=== PATIENT | male | born 2000 | race Caucasian/White ===

== ENCOUNTER 2020-01-08 20:28 | Emergency (ER) | payer BC ==
[2020-01-08] MEDS ORDERED: Albuterol/Ipratropium 3.0-0.5 MG/3 ML Neb Soln NEB ONE (21:52)
--- NOTE | 2020-01-08 21:59 | EDM.PDOC ---
ED HPI GENERAL MEDICAL PROBLEM - General Chief Complaint: Respiratory Problem Stated Complaint: FEVER, VOMITING, COUGH Time Seen by Provider: 01/08/20 20:36 Source of Information: Reports: Patient History Limitations: Reports: No Limitations - History of Present Illness INITIAL COMMENTS - FREE TEXT/NARRATIVE: HISTORY OF PRESENT ILLNESS: Patient is a 19-year-old male who complains of 3 to 4-day history of cough, occasional wheezing and mild shortness of breath. Has generalized malaise and myalgias. Has had tactile fever at home. Reports episode of posttussive emesis, no other vomiting, but does have nausea. Denies any chest pain. No rash or neck stiffness. No urinary symptoms. Denies any recent international travel. No known contact with anyone with confirmed COVID 19. Patient is a smoker REVIEW OF SYSTEMS: Other than the symptoms associated with the present events, the following is reported with regard to recent health: General: (+) fever. HENT: (-) congestion. Respiratory: (+) cough. Cardiovascular: (-) chest pain. GI: (-) abdominal pain. : (-) urinary complaints. Musculoskeletal: (+)generalized myalgias. Endocrine: (+) generalized weakness. Neurological: (-) localized weakness. Skin: (-) rash PAST MEDICAL HISTORY: reviewed as per nursing notes SOCIAL HISTORY: reviewed as per nursing notes, MEDICATIONS: Per nurse's note ALLERGIES: Per nurse's note, reviewed by me PHYSICAL EXAMINATION: GENERALIZED APPEARANCE: well developed, well nourished in mild distress VITAL SIGNS: Per nurse's note, reviewed by me SKIN: Warm, dry; (-) cyanosis; (-) rash. HEAD: (-) scalp swelling, (-) tenderness. EYES: (-) conjunctival pallor, (-) scleral icterus. ENMT: (-) stridor; mucous membranes moist. NECK: (-) tenderness, (-) stiffness, CHEST AND RESPIRATORY: (-) rales, (-) rhonchi, (+)transient expiratory wheezes ; breath sounds equal bilaterally. HEART AND CARDIOVASCULAR: (-) irregularity; (-) murmur, (-) gallop. ABDOMEN AND GI: Soft; (-) tenderness, (-) guarding, (-) rebound, (-) palpable masses, EXTREMITIES: (-) deformity, (-) edema. NEURO AND PSYCH: Alert. Cranial nerves grossly intact; strength symmetric. gait steady DIAGNOSTICS: influenza negative Strep (ordered by another provider) negative COVID-19: pending CXR: as read by radiologist, reviewed by myself. EMERGENCY DEPARTMENT COURSE AND TREATMENT: Patient's condition remained stable during Emergency Department evaluation. Based on my history, physical exam, and diagnostic evaluation, the patient appears to have symptoms consistent with viral illness/bronchitis. There is a normal heart rate, normal oxygen saturation , a normal respiratory pattern and non-diagnostic exam. The patient appeared to be in no distress, appeared well-hydrated and was ambulating in the ED without difficulty. Discharge precautions were given with instructions to return if difficulty breathing, not tolerating oral food or fluids, any respiratory distress, or new symptoms. I encouraged follow-up with the primary care physician in 1-2 days for repeat exam. PLAN AND FOLLOW-UP: Patient received written and verbal instructions regarding this condition. Return to ED immediately with any new or worsening symptoms. Follow up to be arranged by patient with pcp in 1-2 days for further evaluation. Given discharge precautions. Patient expressed verbal understanding. Generalized Pain Score (Numeric/FACES): 8 - Related Data Allergies Allergy/AdvReac Type Severity Reaction Status Date / Time No Known Allergies Allergy Verified 01/08/20 21:22 Home Meds: Home Meds . [No Known Home Meds] 01/08/20 [History] ED ROS GENERAL - Review of Systems Review Of Systems: See Below (see dictation) ED EXAM, GENERAL - Physical Exam Exam: See Below (see dictation) Course - Vital Signs Last Recorded V/S: Last Vital Signs Temp 99.2 F 01/08/20 21:19 Pulse 95 01/08/20 21:19 Resp 18 01/08/20 21:19 BP 115/58 L 01/08/20 21:19 Pulse Ox 97 01/08/20 21:19 - Orders/Labs/Meds Orders: Active Orders 24 hr Category Date Time Status RT Aerosol Therapy [RC] ASDIRECTED Care 01/08/20 21:52 Active CORONAVIRUS (COVID-19) PCR [MREF] Stat Lab 01/08/20 22:00 Received CULTURE STREP A CONFIRMATION [] Stat Lab 01/08/20 21:15 Results STREP SCRN A RAPID W CULT CONF [] Stat Lab 01/08/20 21:15 Results Isolation [COMM] Routine Oth 01/08/20 20:37 Active Isolation [COMM] Routine Oth 01/08/20 21:52 Active Meds: Medications Discontinued Medications Generic Name Dose Route Start Last Admin Trade Name Heidi PRN Reason Stop Dose Admin Albuterol/Ipratropium 3 ml 01/08/20 21:52 01/08/20 22:02 Duoneb 3.0-0.5 Mg/3 Ml NEB 01/08/20 21:53 3 ml ONETIME ONE Administration Departure - Departure Time of Disposition: 23:30 Disposition: Home, Self-Care 01 Condition: Good Clinical Impression: Bronchitis - Discharge Information *PRESCRIPTION DRUG MONITORING PROGRAM REVIEWED*: Not Applicable *COPY OF PRESCRIPTION DRUG MONITORING REPORT IN PATIENT NIVIA: Not Applicable Instructions: Viral Illness, Adult, Acute Bronchitis, Adult Referrals: Windy Rosales [Ordering Only Provider] - 2 Days PCP,None [Primary Care Provider] - Forms: ED Department Discharge Additional Instructions: The following information is given to patients seen in the emergency department who are being discharged to home. This information is to outline your options for follow-up care. We provide all patients seen in our emergency department with a follow-up referral. The need for follow-up, as well as the timing and circumstances, are variable depending upon the specifics of your emergency department visit. If you don't have a primary care physician on staff, we will provide you with a referral. We always advise you to contact your personal physician following an emergency department visit to inform them of the circumstance of the visit and for follow-up with them and/or the need for any referrals to a consulting specialist. The emergency department will also refer you to a specialist when appropriate. This referral assures that you have the opportunity for follow-up care with a specialist. All of these measure are taken in an effort to provide you with optimal care, which includes your follow-up. Under all circumstances we always encourage you to contact your private physician who remains a resource for coordinating your care. When calling for follow-up care, please make the office aware that this follow-up is from your recent emergency room visit. If for any reason you are refused follow-up, please contact the [facility] Emergency Department at and asked to speak to the emergency department charge nurse. Sepsis Event Note - Evaluation Sepsis Screening Result: Possible Sepsis Risk - Focused Exam Vital Signs: Vital Signs Temp Pulse Resp BP Pulse Ox 01/08/20 21:19 99.2 F 95 18 115/58 L 97 Date Exam was Performed: 01/09/20 Time Exam was Performed: 03:37 - My Orders Last 24 Hours: My Active Orders 01/08/20 21:52 RT Aerosol Therapy [RC] ASDIRECTED Isolation [COMM] Routine 01/08/20 22:00 CORONAVIRUS (COVID-19) PCR [MREF] Stat - Assessment/Plan Last 24 Hours: My Active Orders 01/08/20 21:52 RT Aerosol Therapy [RC] ASDIRECTED Isolation [COMM] Routine 01/08/20 22:00 CORONAVIRUS (COVID-19) PCR [MREF] Stat
--- NOTE | 2020-01-08 23:09 | CR ---
Chest: 2 views of the chest were obtained. Comparison: No prior chest x-ray. Heart size and mediastinum are normal. Lungs are clear. Bony structures are unremarkable. Impression: 1. Nothing acute is seen on 2 view chest x-ray. Diagnostic code #1 Study was dictated in MDT
== END 2020-01-08 23:45 | disposition home or self-care (01) ==
LOC: MW.ED 20:28
DX: J40 Bronchitis, not specified as acute or chronic (principal)
CPT/HCPCS: 71046; 87081; 87804; 87880; 94640; 99285; U0001; 99283; J7620-GY